=== PATIENT | female | born 1975 | race Asian ===

== ENCOUNTER 2017-04-04 09:39 | Emergency (ER) | payer OTHER ==
[~2017-04-04] VITALS: Ht 152.4 cm; Wt 45.4 kg
[2017-04-04] MEDS ORDERED: MELO15TA4 PO (09:54)
[2017-04-04] MEDS ORDERED: CETI5TAB2 PO (09:54)
[2017-04-04] MEDS ORDERED: NASA1SPR (09:54)
[2017-04-04] MEDS ORDERED: SALI0.653 (09:54)
--- NOTE | 2017-04-04 10:55 | REP ---
LEFT THIRD DIGIT: Four views of the left third digit are performed. There is no acute fracture or dislocation. Tiny density is seen in the region of the nail bed which appears to represent a tiny foreign body in this region. I see no other significant finding. Signed by Chauncey Tenorio MD 04/04/2017 07:46 P
[2017-04-04] MEDS ORDERED: LIDOCAINE 2% MDV 20 ML VIAL SC ONE (11:00)
[2017-04-04] MEDS ORDERED: BACITRACIN OINT 30GM TOP ONE ×2 (12:00)
--- NOTE | 2017-04-04 12:35 | REP ---
LEFT THIRD DIGIT: Four views left third digit performed. Previously noted tiny metallic foreign body in the dorsum of the digit distally is no longer seen. No other foreign body is seen. The osseous structures are intact. Signed by Chauncey Tenorio MD 04/04/2017 07:47 P
[2017-04-04] MEDS ORDERED: TYLE325T5 PO (12:39)
[2017-04-04] MEDS ORDERED: NAPR500T2 PO (12:39)
[2017-04-04 12:52] VITALS: BP 109/56
== END 2017-04-04 12:53 | disposition home or self-care (01) ==
LOC: M ED 10:12
DX: S60.453A Superficial foreign body of left middle finger, initial encounter (principal); W45.8XXA Other foreign body or object entering through skin, initial encounter; Y92.89 Other specified places as the place of occurrence of the external cause; Y93.D2 Activity, sewing; Y99.8 Other external cause status; Z79.899 Other long term (current) drug therapy

== ENCOUNTER → 2019-01-06 | Outpatient (REF) | payer OTHER ==
[~2019-01-06] MED LIST: CETI5TAB2 PO; MELO15TA28 PO; NAPR-885 PO; NASA1SPR; SALI0.6528; TYLE325T5 PO
[2019-01-06 13:59] LABS: INFLUENZA A AMPLIFICATION NEGATIVE (NEGATIVE); INFLUENZA B AMPLIFICATION NEGATIVE (NEGATIVE)
== END ==
LOC: M LAB REF 13:18
PROVIDERS: ATTEND Physician Assistant
DX: R68.89 Other general symptoms and signs (principal)

== ENCOUNTER → 2019-02-09 | Outpatient (REF) | payer OTHER ==
[2019-02-09 22:50] LABS: INFLUENZA A AMPLIFICATION POSITIVE (NEGATIVE); INFLUENZA B AMPLIFICATION NEGATIVE (NEGATIVE)
== END ==
LOC: M LAB REF 10:53
PROVIDERS: ATTEND Physician Assistant
DX: J11.00 Influenza due to unidentified influenza virus with unspecified type of pneumonia (principal)

== ENCOUNTER 2021-03-11 18:54 | Emergency (ER) | payer OTHER ==
[~2021-03-11] VITALS: Ht 152.4 cm; Wt 46.7 kg
[2021-03-11] MEDS ORDERED: MELO7.5T35 (19:07)
--- NOTE | 2021-03-11 20:20 | REPVR ---
PROCEDURE INFORMATION: Exam: CT Head Without Contrast Exam date and time: 03/11/2021 7:16 PM Age: 45 years old Clinical indication: Injury or trauma; Fall; Blunt trauma (contusions or hematomas) TECHNIQUE: Imaging protocol: Computed tomography of the head without contrast. Radiation optimization: All CT scans at this facility use at least one of these dose optimization techniques: automated exposure control; mA and/or kV adjustment per patient size (includes targeted exams where dose is matched to clinical indication); or iterative reconstruction. COMPARISON: No relevant prior studies available. FINDINGS: Brain: Normal. No hemorrhage. Unremarkable white matter. No mass effect. Cerebral ventricles: No ventriculomegaly. Bones/joints: Unremarkable. No acute fracture. Paranasal sinuses: Visualized sinuses are unremarkable. No fluid levels. Mastoid air cells: Visualized mastoid air cells are well aerated. Soft tissues: Unremarkable. IMPRESSION: No acute intracranial abnormality. Electronically signed by: Ronald Mishra On 03/11/2021 20:20:38 PM
[2021-03-11 20:49] VITALS: BP 118/60
== END 2021-03-11 20:55 | disposition home or self-care (01) ==
LOC: M ED 18:54
DX: S06.0X0A Concussion without loss of consciousness, initial encounter (principal); S40.022A Contusion of left upper arm, initial encounter; W19.XXXA Unspecified fall, initial encounter; Y92.9 Unspecified place or not applicable; Y93.9 Activity, unspecified; Y99.9 Unspecified external cause status; G89.29 Other chronic pain; M54.9 Dorsalgia, unspecified

== ENCOUNTER → 2022-09-27 | Outpatient (CLI) | payer OTHER ==
[~2022-09-27] MED LIST changes: +MELO7.5T35
== END ==
LOC: M RAD 09:32
DX: M25.511 Pain in right shoulder (principal)

== ENCOUNTER → 2023-05-28 | Outpatient (CLI) | payer OTHER ==
[2023-05-28 08:13] LABS: BASO % 0.8 % (0.0-1.0); EOS # 0.1 10^3/uL (0.0-0.5); EOS % 2.4 % (0.0-3.0); HEMATOCRIT 36.2 % (36.0-47.0); HEMOGLOBIN 12.3 g/dl (12.0-15.5); LYMPH # 2.3 10^3/uL (1.5-5.0); LYMPH % 45.8 % (24.0-44.0); MEAN CORPUSCULAR HEMOGLOBIN 34.2 pg (27.0-33.0); MEAN CORPUSCULAR VOLUME 100.6 fl (80.0-96.0); MONO # 0.3 10^3/uL (0.0-0.8); MONO % 6.3 % (2.0-8.0); NEUTROPHILS # 2.2 10^3/uL (1.5-8.5); NEUTROPHILS % 44.5 % (36.0-66.0); PLATELET COUNT, AUTOMATED 267 10^3/uL (150-450); WHITE BLOOD COUNT 4.9 10^3/uL (4.0-10.0)
[2023-05-28 08:44] LABS: CHOLESTEROL RISK RATIO 2.93 (<5); LDL CHOLESTEROL 102.8 MG/DL (<100)
[2023-05-28 09:43] LABS: HEMOGLOBIN A1c 5.2 % (4.0-6.0)
== END ==
LOC: M LAB 05-07 06:18
PROVIDERS: ATTEND Family Medicine
DX: Z13.0 Encounter for screening for diseases of the blood and blood-forming organs and certain disorders involving the immune mechanism (principal); Z13.220 Encounter for screening for lipoid disorders; Z13.1 Encounter for screening for diabetes mellitus; Z53.9 Procedure and treatment not carried out, unspecified reason

== ENCOUNTER → 2024-05-09 | Outpatient (CLI) | payer OTHER ==
[2024-05-09 08:55] LABS: BASO % 0.6 % (0.0-1.0); EOS # 0.1 10^3/uL (0.0-0.5); EOS % 1.7 % (0.0-3.0); HEMATOCRIT 39.2 % (36.0-47.0); HEMOGLOBIN 13.2 g/dl (12.0-15.5); LYMPH # 1.8 10^3/uL (1.5-5.0); LYMPH % 51.8 % (24.0-44.0); MEAN CORPUSCULAR HEMOGLOBIN 33.4 pg (27.0-33.0); MEAN CORPUSCULAR HGB CONC 33.7 g/dl (32.0-36.5); MEAN CORPUSCULAR VOLUME 99.2 fl (80.0-96.0); MONO # 0.3 10^3/uL (0.0-0.8); MONO % 9.3 % (2.0-8.0); NEUTROPHILS # 1.3 10^3/uL (1.5-8.5); NEUTROPHILS % 36.6 % (36.0-66.0); PLATELET COUNT, AUTOMATED 275 10^3/uL (150-450); RED BLOOD COUNT 3.95 10^6/uL (4.00-5.40); WHITE BLOOD COUNT 3.6 10^3/uL (4.0-10.0)
[2024-05-09 09:13] LABS: HEMOGLOBIN A1c 5.4 % (4.0-6.0)
[2024-05-09 09:24] LABS: ALKALINE PHOSPHATASE 48 U/L (46-116); ALT/SGPT 16 U/L (7.0-40); AST/SGOT 11 U/L (<34); BILIRUBIN,TOTAL 0.8 MG/DL (0.3-1.2); BLOOD UREA NITROGEN 12 MG/DL (9-23); CALCIUM LEVEL 9.1 MG/DL (8.5-10.1); CARBON DIOXIDE LEVEL 30 MMOL/L (20-31); CHLORIDE LEVEL 107 MMOL/L (98-107); CHOLESTEROL LEVEL 198 MG/DL (<200); CHOLESTEROL RISK RATIO 2.78 (<5); CREATININE FOR GFR 0.85 MG/DL (0.55-1.30); GLOMERULAR FILTRATION RATE > 60.0 (>58); GLUCOSE, FASTING 90 MG/DL (60-100); LDL CHOLESTEROL 111.8 MG/DL (<100); POTASSIUM SERUM 4.3 MMOL/L (3.5-5.1); SODIUM LEVEL 141 MMOL/L (136-145); TOTAL PROTEIN 7.4 G/DL (5.7-8.2); TRIGLYCERIDES LEVEL 76 MG/DL (<150)
[2024-05-09 09:26] LABS: THYROID STIMULATING HORMONE 1.589 uIU/ML (0.55-4.78)
== END ==
LOC: M LAB 08:17
PROVIDERS: ATTEND Physician Assistant
DX: R79.9 Abnormal finding of blood chemistry, unspecified (principal); Z13.29 Encounter for screening for other suspected endocrine disorder; E78.5 Hyperlipidemia, unspecified

== ENCOUNTER → 2025-02-22 | Outpatient (REF) | payer OTHER | LOC: M LAB REF 17:17 | PROVIDERS: ATTEND Physician Assistant Medical | DX: B34.9 Viral infection, unspecified (principal) ==

== ENCOUNTER → 2025-06-08 | Outpatient (CLI) | payer OTHER ==
[2025-06-08 08:19] LABS: BASO # 0.0 10^3/uL (0.0-0.2); BASO % 0.5 % (0.0-1.0); EOS # 0.1 10^3/uL (0.0-0.5); EOS % 1.4 % (0.0-3.0); LYMPH # 1.9 10^3/uL (1.5-5.0); LYMPH % 45.8 % (24.0-44.0); MONO # 0.4 10^3/uL (0.0-0.8); MONO % 8.4 % (2.0-8.0); NEUTROPHILS # 1.8 10^3/uL (1.5-8.5); NEUTROPHILS % 43.7 % (36.0-66.0); PLATELET COUNT, AUTOMATED 298 10^3/uL (150-450)
[2025-06-08 08:24] LABS: ALT/SGPT 20.0 U/L (7.0-40); AST/SGOT 20.0 U/L (<34); CALCIUM LEVEL 9.4 MG/DL (8.5-10.1); CARBON DIOXIDE LEVEL 30.0 MMOL/L (20-31); CHLORIDE LEVEL 103.0 MMOL/L (98-107); CHOLESTEROL LEVEL 206.0 MG/DL (<200); CHOLESTEROL RISK RATIO 2.94 (<5); CREATININE FOR GFR 0.85 MG/DL (0.55-1.30); GLOMERULAR FILTRATION RATE 84.5 (>58); LDL CHOLESTEROL 111.4 MG/DL (<100); NON-HDL-C 136.0 MG/DL; POTASSIUM SERUM 4.3 MMOL/L (3.5-5.1); SODIUM LEVEL 144.0 MMOL/L (136-145); TRIGLYCERIDES LEVEL 123.0 MG/DL (<150)
[2025-06-08 08:26] LABS: ESTIMATED AVERAGE GLUCOSE 105.0 MG/DL (60-110)
[2025-06-09 16:08] LABS: LDL DIRECT 125 mg/dL (<100)
== END ==
LOC: M LAB 06:33
PROVIDERS: ATTEND Family Medicine
DX: E78.5 Hyperlipidemia, unspecified (principal); R79.9 Abnormal finding of blood chemistry, unspecified